=== PATIENT | female | born 1980 ===

== ENCOUNTER 2025-09-17 09:29 | Day surgery (SDC) | payer SELFPAY ==
[2025-09-17] VITALS (10 sets, daily range): BP systolic 116–165; BP diastolic 63–90; PULSE 83–111; RESP 11–22; TEMP 36.3–36.9; O2SAT 90–97; BMI 31.3
--- NOTE | 2025-09-17 00:47 | W.PM.OPSFHP ---
Same Day Surgery H&P Indication for Procedure/HPI DATE OF PROCEDURE: September 17, 2025 CHIEF COMPLAINT/INDICATIONFOR SURGICAL PROCEDURE: desires permanent sterilization PREOP DIAGNOSIS: desires permanent sterilization PLANNED PROCEDURE: Operation Date: 09/17/25 11:00 Proposed Procedures p Laparoscopic BILATERAL Salpingectomy 92435 Z30.2(Bilateral) - Baron Mcmillan MD Medications/Allergies* Home Medications ?Medication ?Instructions ?Recorded ?Confirmed ?Type norgestrel 0.3 mg-ethinyl 1 tab PO DAILY 08/07/25 09/16/25 History estradiol 30 mcg tablet (Josefina (28)) sertraline 100 mg tablet 100 mg PO DAILY 08/07/25 09/16/25 History Allergies/Adverse Reactions Allergy/AdvReac Type Severity Reaction Status Date / Time No Known Allergies Allergy Unverified 09/16/25 12:36 Pertinent History/Comorbid Conditions* Social History Smoking and tobacco/nicotine status: never used tobacco/nicotine Alcohol intake: never Substance/Drug Use: never Pertinent Exam Findings alert, oriented x 3, clear to auscultation bilaterally and regular rate & rhythm Recommendations Surgery/Procedure today Coding Level of Care Code Acute Code for Chg Fwd
--- NOTE | 2025-09-17 10:40 | W.PM.OPSUD ---
Surgery/Procedure H&P Update DATE OF PROCEDURE: September 17, 2025 DATE H&P PERFORMED: 09/17/25 H&P UPDATE INFORMATION: I have reviewed H&P completed within last 30 days, I have examined patient prior to procedure and No changes to prior documentation PREOP DIAGNOSIS: desires permanent sterilization PLANNED PROCEDURE: Operation Date: 09/17/25 11:00 Proposed Procedures p Laparoscopic BILATERAL Salpingectomy 87905 Z30.2(Bilateral) - Baron Mcmillan MD
--- NOTE | 2025-09-17 11:14 | ANES.PREANE2 ---
Pre-Anesthetic Assessment Height/Weight: Height 5 ft 7 in Weight 200 lb Temp Pulse Resp BP Pulse Ox O2 Del Method 97.4 F L 83 18 165/89 97 Room Air 09/17/25 10:11 09/17/25 10:11 09/17/25 10:11 09/17/25 10:11 09/17/25 10:11 09/17/25 10:11 Preop Diagnosis: desires permanent sterilization Operation Date: 09/17/25 11:00 Proposed Procedures p Laparoscopic BILATERAL Salpingectomy 74694 Z30.2(Bilateral) - Baron Mcmillan MD Was Beta Ruben taken within 24 hours: N/A Was Clonidine taken within 24 hours: N/A Last intake: Intake Last Liquid Date 09/16/25 Last Liquid Time 22:00 Last Solid Date 09/16/25 Last Solid Time 22:00 Social No alcohol and No tobacco Exam alert, oriented x 3, clear to auscultation bilaterally and regular rate & rhythm Airway Submandibular: within normal limits Cervical ROM: within normal limits Mallampati: Class III Dentition: full Anesthetic Plan ASA status: 2 Anesthesia: General Other: No prior issues with anesthesia NPO since yesterday evening Denies any cardiac or pulmonary issues however preop BP 165/89. Patient states that she is very nervous this morning METs greater than 4 Plan for GETA Medications/Allergies Home Medications ?Medication ?Instructions ?Recorded ?Confirmed ?Last Taken ?Type norgestrel 0.3 mg-ethinyl 1 tab PO DAILY 08/07/25 09/16/25 09/13/25 History estradiol 30 mcg tablet (Josefina (28)) sertraline 100 mg tablet 100 mg PO DAILY 08/07/25 09/16/25 09/17/25 08:00 History Allergies Allergy/AdvReac Type Severity Reaction Status Date / Time No Known Allergies Allergy Unverified 09/16/25 12:36 [facility] Anesthesia Social History Smoking and tobacco/nicotine status: never used tobacco/nicotine Alcohol intake: never Substance/Drug Use: never Female Reproductive History Date of last menstrual period: 09/13/25
--- NOTE | 2025-09-17 15:00 | ANE.PACU2 ---
Inpatient post-anesthesia follow up: Airway intact: Yes Vital signs: Temperature 97.5 F Pulse Rate 88 Respiratory Rate 15 Blood Pressure 117/63 Pulse Oximetry 94 Oxygen Delivery Me thod Room Air Oxygen Flow Rate 10 Fraction of Inspir ed Oxygen Hydration adequate: Yes Nausea and vomiting: No Pain level: 1 Mental status: Baseline
--- NOTE | 2025-09-17 15:05 | PM.OP ---
Operative Report Date of procedure: September 17, 2025 Pre-op diagnosis: desires permanent sterilization Post-op diagnosis: same Post-op findings: normal uterus, tubes, and ovaries Procedure done: laparoscopic bilateral salpingectomy Implants: none Specimens removed/disposition: bilateral fallopian tubes Surgeon: Baron Mcmillan MD Strategic Marketing Manager: Robert Lora MD Anesthesia: General Estimated blood loss (mL): 5 Complications: none Findings: see above Condition: stable Disposition: PACU Brief History: 44 y.o. desires permanent sterilization Procedure: The patient was taken to the OR and placed on the table. General endotracheal anesthesia was induced. The abdomen was then prepped and draped in the usual fashion. A 5 mm subumbilical skin incision was made. A 5 mm trocar with sheath was then inserted into the peritoneal cavity under direct visualization with the laparoscope. After confirming intraperitoneal position, pneumoperitoneum was achieved. Two separate 5 mm incisions were made in the right and left mid-quadrants. 5 mm trocars with sheaths were then inserted into the peritoneal cavity under direct visualization with the laparoscope. The right fallopian tube was then identified to its fimbrial end. Starting at the fimbrial end, the mesosalpinx was then coagulated and cut using the Ligasure. The right fallopian tube was excised and removed via one of the ports. This was sent to pathology. There was no bleeding seen. Similarly, the left fallopian tube was identified to its fimbrial end. The left fallopian tube was excised and removed, sent to pathology. There was no bleeding. All instruments were then removed from the peritoneal cavity after the pneumoperitoneum was allowed to escape. The skin incisions were closed using 3-O chromic in subcuticular fashion. Dermabond was applied. The patient was then placed supine and awakened, taken the the PACU in good condition. Postop condition: stable EBL: 5 cc Complications: none Sponge, needles, and instruments counts correct x two
== END 2025-09-17 15:00 | disposition home or self-care (01) ==
PROVIDERS: PCP Nurse Practitioner Family; Visit Provider Obstetrics & Gynecology
PROC: (CPT 58661; principal; 2025-09-17 10:50)
DX: Z30.2 Encounter for sterilization (principal)
CPT/HCPCS: 58661; 88302; A4216; J1100; J1171; J1885; J2250; J2371; J2405; J2704; J2710; J3010; J3490; J7030; J9999